=== PATIENT | female | born 1990 | race African-American/Black ===

== ENCOUNTER 2018-12-13 20:29 | Inpatient (IN) | payer SELFPAY ==
[2018-12-13 20:54] LABS: #Basophils 0.1 thou/uL (0.0-0.2); #Eosinphils 0.3 thou/uL (0.0-0.7); #Lymphocytes 3.7 thou/uL (1.20-3.40); #Monocytes 1.2 thou/uL (0.11-0.59); #Neutrophils 8.8 thou/uL (1.40-6.50); %Eosinophils 2.3 % (0.0-10.0); %Monocytes 8.5 % (0.0-10.0); %Neutrophils 62.1 % (42.0-75.0); Hemoglobin 10.8 g/dL (12.0-16.0); Mean Corpuscular HGB CONC 33.2 g/dL (32.0-36.0); Mean Corpuscular Hemoglobin 27.8 pg (27.0-31.0); Mean Corpuscular Volume 83.7 fL (78.0-98.0); Mean Platelet Volume 7.6 fL (7.4-10.4); Platelet Count 321 thou/uL (130-400); RBC Distribution Width 13.4 % (11.5-14.5); Red Blood Cell (RBC) Count 3.89 mill/uL (4.20-5.40); White Blood Cell (WBC) Count 14.1 thou/uL (4.8-10.8)
[2018-12-13 21:15] LABS: ALT (SGPT) 11 U/L (8-55); AST (SGOT) 13 U/L (5-34); Albumin 3.8 g/dL (3.5-5.0); Alkaline Phosphatase 67 U/L (40-110); Anion Gap 11 mmol/L (10-20); BUN (Urea Nitrogen) 8 mg/dL (7.0-18.7); Bilirubin, Total Less than 0.2 mg/dL (0.2-1.2); Calc. Creatinine Clearance 0 mL/min (70-130); Calcium 9.4 mg/dL (7.8-10.44); Carbon Dioxide 23 mmol/L (22-29); Chloride 102 mmol/L (98-107); Estimated GFR-MDRD Greater than 90; Globulin 3.6 g/dL (2.4-3.5); Glucose 94 mg/dL (70-105); Potassium 3.8 mmol/L (3.5-5.1); Protein, Total 7.4 g/dL (6.0-8.3); Sodium 132 mmol/L (136-145)
--- NOTE | 2018-12-13 21:42 | ULT ---
EXAM: OB ultrasound COMPARISON: None HISTORY: Pelvic pain. TECHNIQUE: Multiplanar grayscale and color Doppler transabdominal sonographic images are obtained. FINDINGS: There is a single intrauterine gestation in breech presentation. Cardiac Doppler demonstrat es heart tones with a heart rate of 133 beats per minute. The placenta is located to the maternal right and appears to extend across the cervical os suggesting complete placenta previa b ased on provided sonographic images. There is a decrease in the amount of amniotic fluid. An amniotic fluid index of 2.4 cm is calculated. The cervix is shortened measuring 1.8 cm in length base d on transabdominal imaging. There is lucency seen in the region of the internal cervical os which could be related to fluid and secondary to funneling, but given the placenta previa, this is difficul t to adequately determine. biometry measurements: BPD 5.34 cm -- 22 weeks 2 days HC 19.9 cm -- 22 weeks AC 17.59 cm -- 22 weeks 3 days FL 5.06 cm -- 23 weeks 1 day The estimated gestational age by ultrasound is 22 weeks 3 days with an KARLA on04/15/2019. Gestational a ge by the last menstrual period is not provided. The estimated weight by ultrasound is 526 g (1 pound, 3 ounces). The cerebellum, stomach, and urinary bladder are visualized and demonstrate a normal sonographic appe arance. A definite 4 chamber heart is difficult to delineate. anatomical structures are overall difficult to evaluate due to lack of amniotic fluid. No definitive anomalies appreciate d. A three-vessel cord is not visualized, but there is flow on either side of the urinary bladder suggesting a three-vessel cord. IMPRESSION: 1. Oligohydramnios with significant decrease in amniotic fluid volume with amniotic fluid index of 2. 4 cm. 2. The placenta is located on the maternal right and provided images suggest that there is evidence o f a complete placenta previa. 3. Single intrauterine gestation in breech presentation with heart tones documented. Estimated gestational age by ultrasound is 20 weeks 3 days. 4. Estimated weight is 526 g (1 pound, 3 ounces. 5. CUSTOMER INSIGHT ANALYST consultation is recommended. Above findings discussed with Dr. Sood in the emergency depar tment on 12/13/2018 at 2137 hours.
[2018-12-13] MEDS ORDERED: Lactated Ringer's 1,000 ML IV SCH ×2 (23:30)
--- NOTE | 2018-12-13 23:39 | ULT ---
LIMITED PELVIC ULTRASOUND: 12/13/18 HISTORY: Difficulty in evaluation of the placenta as well as in evaluation of the cervix on the initial OB ult rasound. Additional endovaginal imaging was requested for further evaluation. FINDINGS: Comparison is made with OB ultrasound on 12/13/18. The placenta appears to be located to the maternal left and not on the right as suggestied on prior e xam, but again does cover the internal cervical os suggesting complete placenta previa. A tiny amount of fluid is seen within the endocervical canal. Given the diminished amniotic fluid, more adequate e valuation of the placenta is difficult on this exam. IMPRESSION: Findings suggesting complete placenta previa. Dr. Delaney was present during this exam. POS: OFF
[2018-12-14 00:22] LABS: Amnisure Test RUPTURE DETECTED (No Rupture)
[2018-12-14 00:23] LABS: Amnisure Internal Control QC ACCEPTABLE (ACCEPTABLE)
[2018-12-14 00:43] VITALS: BP 130/62; TEMP 98.4; BMI 25.8
[2018-12-14] MEDS ORDERED: Ampicillin 2 GM in Sodium Chloride 0.9% 100 ML IVPB SCH (00:45)
[2018-12-14] MEDS ORDERED: Azithromycin 1,000 MG in Sodium Chloride 0.9% 500 ML IVPB SCH (00:45)
--- NOTE | 2018-12-14 00:50 | PRG ---
DATE OF SERVICE: 12/13/2018 PRIMARY OB: None. CHIEF COMPLAINT: Leakage of fluid. HISTORY OF PRESENT ILLNESS: The patient is a 28-year-old, G4, P3 female with an intrauterine at about 22 weeks' gestation by ultrasound today, presenting to Labor and Delivery with leakage of fluid that began about 6:00 p.m. The patient reports that she had a gush of leaking fluid that has been occurring since that time and has required multiple pads for coverage and has continued to leak but at a lesser degree. She denies any uterine contractions or vaginal bleeding. She denies any recent illness, fever, fall, headache, chest pain, shortness of breath, nausea, vomiting, diarrhea, constipation, hip problems, knee problems, muscle weakness, vaginal bleeding, leakage of fluid, or urinary urgency or frequency. The patient has not established OB care. PAST MEDICAL HISTORY: Negative. PAST SURGICAL HISTORY: She has had 2 previous C-sections. SOCIAL HISTORY: The patient denies alcohol or drug use or tobacco use since the . She does have a history of marijuana use and social drinking and a history a half pack per day of smoking. ALLERGIES: NO KNOWN DRUG ALLERGIES. MEDICATIONS: None. REVIEW OF SYSTEMS: Per HPI. PHYSICAL EXAMINATION: VITAL SIGNS: Blood pressure 130/82, heart rate of 93, respiratory rate 18, saturating 98% on room air, and temperature 98.4. GENERAL: She appears to be in no acute distress. She is alert, oriented, cooperative, and pleasant to interact with. HEAD: Normocephalic and atraumatic. LUNGS: Clear to auscultation bilaterally. HEART: Has regular rate and rhythm. ABDOMEN: Gravid, soft, nontender. EXTREMITIES: Nontender, nonedematous. : Vulva is without masses, lesions, or erythema. Vagina is moist with pulling present on sterile speculum exam. Cervix is closed visibly. Digital exam is not performed. heart tracing shows Doppler at 140s. No contractions visible on the monitor. LABORATORY DATA: CBC shows a white count of 14.1, hemoglobin 10.8, hematocrit 32.6, and platelets 321,000. Sodium 132, potassium 3.8, creatinine 0.65, AST of 13, and ALT of 11. Formal ultrasound shows a fetus measuring 22 weeks and 3 days in vertex presentation with PRINCE of 2.4 and what appears to be a complete placenta previa. weight is estimated at 526 g. AmniSure test is positive. ASSESSMENT AND PLAN: The patient is a 28-year-old multiparous female with what appears to be acute gross rupture of membranes at 6:00 p.m. today on 12/13/2018, with fetus in the periviable state and a placenta previa as what appears to be going on by ultrasound; however, the patient is actively leaking fluid with no bleeding. Given the patient's periviable state, the patient will be transferred to [facility]. We will place her on antibiotics at this time. Job ID: [id number]
[2018-12-14 01:14] LABS: HBSAB Concentration 31.14 mIU/mL; Hep B Surf AB Reactive (NonReactive)
[2018-12-14 01:41] LABS: Amphetamine Not Detected (NotDetected); Barbiturates Screen Not Detected (NotDetected); Benzodiazepine Screen Not Detected (NotDetected); Cocaine Metabolite Screen Not Detected (NotDetected); Medtox Control Line Valid? VALID (VALID); Medtox Reader # READER 1; Methadone Not Detected (NotDetected); Methamphetamine Not Detected (NotDetected); Opiate Screen Not Detected (NotDetected); Oxycodone Screen Not Detected (NotDetected); Phencyclidine (PCP) Not Detected (NotDetected); THC/Cannabinoid Screen Detected (NotDetected); Tricyclic Screen Not Detected (NotDetected)
[2018-12-14] MEDS ORDERED: FLU VACC QS2019-20(6MOS UP)/PF 60 MCG/0.5 ML SYRINGE IM ONE (09:00)
[2018-12-14 09:31] LABS: Syphilis Antibody INDETERMINATE (Nonreactive)
== END 2018-12-14 01:15 | disposition short-term general hospital (02) | DRG 832 ==
LOC: ERS 20:29 → L&D 22:37
PROVIDERS: ADMIT Obstetrics & Gynecology; ATTEND Obstetrics & Gynecology
DX: O42.912 Preterm premature rupture of membranes, unspecified as to length of time between rupture and onset of labor, second trimester (principal); O44.02 Complete placenta previa NOS or without hemorrhage, second trimester; Z3A.22 22 weeks gestation of pregnancy
CPT/HCPCS: 36415; 76815; 76856; 80053; 80306; 84112; 84702; 85025; 86593; 86706; 86762; 86780; 86850; 86900; 86901; 87480; 87510; 87660; J0290; J3490

== ENCOUNTER 2020-01-03 07:34 | Inpatient (IN) | payer OTHER, SELFPAY ==
[2020-01-03] MEDS ORDERED: Bicitra 30 ML UDCUP ONE (08:06)
[2020-01-03] MEDS ORDERED: Azithromycin 500 MG VIAL ONE (08:09)
[2020-01-03] MEDS ORDERED: hydrALAZINE 20 MG/ML VIAL SLOW IVP PRN ×2 (08:10→12:56)
[2020-01-03] MEDS ORDERED: Azithromycin 500 MG in Sodium Chloride 0.9% 250 ML 250 ML IVPB SCH (08:10)
[2020-01-03] MEDS ORDERED: CEFAZOLIN 2 GM in Premix Bag 1 BAG IVPB SCH (08:10)
[2020-01-03] MEDS: Lactated Ringer's 1,000 ML IV SCH ×2 (08:10→14:00)
[2020-01-03] MEDS ORDERED: Docusate 100 MG CAP PO PRN (08:10)
[2020-01-03] MEDS ORDERED: Ondansetron PF 4 MG/2 ML Vial IVP PRN ×3 (08:10→12:56)
[2020-01-03] MEDS ORDERED: Butorphanol Tartrate 1 MG/ML VIAL SLOW IVP PRN (08:10)
[2020-01-03] MEDS ORDERED: Promethazine HCl 25 MG/ML VIAL IM PRN ×2 (08:10→09:56)
[2020-01-03] MEDS ORDERED: Acetaminophen 500 MG TAB PO PRN (08:10)
[2020-01-03] MEDS ORDERED: Bicitra 30 ML UDCUP PO SCH (08:10)
[2020-01-03 08:12] VITALS: BMI 28.1
[2020-01-03 08:16] LABS: Hemoglobin 11.3 g/dL (12.0-16.0); Mean Corpuscular HGB CONC 31.5 g/dL (32.0-36.0); Mean Corpuscular Hemoglobin 26.2 pg (27.0-31.0); Mean Corpuscular Volume 83.1 fL (78.0-98.0); Mean Platelet Volume 8.1 fL (7.4-10.4); Platelet Count 365 thou/uL (130-400); RBC Distribution Width 14.3 % (11.5-14.5); Red Blood Cell (RBC) Count 4.31 mill/uL (4.20-5.40); White Blood Cell (WBC) Count 16.4 thou/uL (4.8-10.8)
[2020-01-03] MEDS ORDERED: Morphine PF 10 MG/10 ML VIAL ONE (08:29)
[2020-01-03] MEDS ORDERED: Fentanyl 250 MCG/5 ML VIAL ONE (08:29)
[2020-01-03] MEDS ORDERED: Fentanyl 100 MCG/2 ML VIAL ONE (08:30)
[2020-01-03] MEDS ORDERED: ePHEDrine 50 MG/ML VIAL ONE (08:30)
[2020-01-03] MEDS ORDERED: PHENYLEPHRINE-NS 100 MCG/ML 10 ML SYRINGE ONE (08:31)
[2020-01-03] MEDS ORDERED: Oxytocin 10 UNITS/ML VIAL ONE (08:31)
[2020-01-03] MEDS ORDERED: Ondansetron PF 4 MG/2 ML Vial ONE (08:32)
[2020-01-03 08:57] LABS: HBSAg Index 0.16 S/CO (0-0.99); HIV (1/2) Antibody/Antigen Non-Reactive (NonReactive); HIV 1/2 INDEX 0.12 S/CO (<1.00); Hep B Surf Ag Non-Reactive S/CO (NonReactive)
[2020-01-03 09:03] LABS: Amphetamine Detected (NotDetected); Barbiturates Screen Not Detected (NotDetected); Benzodiazepine Screen Not Detected (NotDetected); Cocaine Metabolite Screen Not Detected (NotDetected); Medtox Control Line Valid? VALID (VALID); Medtox Reader # READER 4; Methadone Not Detected (NotDetected); Methamphetamine Detected (NotDetected); Opiate Screen Not Detected (NotDetected); Oxycodone Screen Not Detected (NotDetected); Phencyclidine (PCP) Not Detected (NotDetected); THC/Cannabinoid Screen Detected (NotDetected); Tricyclic Screen Not Detected (NotDetected)
[2020-01-03] MEDS ORDERED: Ketorolac Tromethamine 30 MG/ML VIAL ONE (09:30)
[2020-01-03] MEDS ORDERED: Dexamethasone 4 mg/ml Vial ONE (09:30)
[2020-01-03] MEDS ORDERED: Naloxone HCl 0.4 mg/ml Vial IV PRN (09:56)
[2020-01-03] MEDS ORDERED: Promethazine HCl 25 MG SUPP PR PRN (09:56)
[2020-01-03] MEDS ORDERED: Ondansetron HCl/PF 4 MG/2 ML Vial IVP PRN (09:56)
[2020-01-03] MEDS ORDERED: Meperidine HCl/PF 25 MG/ML VIAL SLOW IVP PRN (09:56)
[2020-01-03] MEDS ORDERED: diphenhydrAMINE 50 MG/ML VIAL IVP PRN (09:56)
[2020-01-03] MEDS ORDERED: HYDROmorphone 2 MG/ML VIAL SLOW IVP PRN (09:56)
[2020-01-03] MEDS ORDERED: Naloxone HCl 0.4 mg/ml Vial IVP PRN ×2 (09:56)
[2020-01-03] MEDS ORDERED: L&D-Morphine 4 MG/ML VIAL SLOW IVP PRN (09:56)
[2020-01-03] MEDS ORDERED: Communication Order-Pharmacy FS SCH (10:00)
--- NOTE | 2020-01-03 10:05 | PDOC.FPROB ---
FMR OB H&P: HPI - History of Present Illness Chief Complaint: ROM History of Present Illness: 29 y/o with no care believed to be a who is brought in by EMS for reported ROM at home. She c/o LOF at home around 0715 this morning. She does not know her KARLA or gestational age. Believes her LMP was sometime in 04/2019 which would make her 32-36 weeks, very unsure of this. Has had continued monthly spotting since that time until 1 month ago which is when she first realized she was . Endorses contractions. Denies current vaginal bleeding, vaginal discharge. She has previous hx of IUFD, twin gestation, labor. All of her previous deliveries have been via section. States this will be her 5th ceserean section. Chart review also reveals hx of methamphetamine and cannabis use in the past. Denies drug or alcohol use. Endorses tobacco use before she knew she was . Reports she had a walk in appointment for her approximately 1 month ago. She [facility] app[facility]. States she did not get f/u appt after that visit. She is a poor historian and is unable to further clarify her past obstetric history at this time. No record of patient encounter with [facility]. Primary Care Physician: unknown FMR OB H&P: Current - Care : 5 Para: [id number] Gestational age: estimated 34-36 wks based on bedside sono today Due date: unknown Course/Complications: No care Hx tobacco use in maternal hx drug use in past - OB Labs Blood type: B RH: positive Antibody Screen: negative HIV: negative RPR: unknown HepBsAg: negative Quad screen: unknown Urine drug screen: positive Gonorrhea: unknown Chlamydia: unknown GBS: unknown H&H: 11.3/35.8 FMR OB H&P: History - Past Medical History PMH: Hx hepatitis s/p treatment per patient - unsure if B or C - OB History OB History: , presumed Hx IUFD Hx twin gestation Hx multiple in past - BIOMATHEMATICIAN History BIOMATHEMATICIAN History: unknown - Surgical History Sx History: denies surgeries other than cesearean - Social History Social History: Denies etoh, drug use. UDS positive. Admits tobacco use. - Family History Family History: Hx DM in grandmother, does not know additional family hx FMR OB H&P: Medications - Current Home Medications: Medication Instructions Recorded Confirmed Type Pnv No.95/Ferrous Fum/Folic AC 1 each PO DAILY 12/14/18 12/14/18 History [ Vitamin Tablet] Allergies/Adverse Reactions: Allergies Allergy/AdvReac Type Severity Reaction Status Date / Time citric acid Allergy Verified 05/14/19 13:05 No Known Drug Allergies Allergy Unverified 05/14/19 13:05 FMR OB H&P: ROS - Review of Systems General: denies: fever/chills Eyes: denies: vision changes ENT: denies: nasal congestion, rhinorrhea Cardiovascular: denies: chest pain, palpitation, edema Respiratory: denies: shortness of breath Gastrointestinal: denies: abdominal pain, nausea, vomiting Genitourinary (Female): reports: contractions. denies: dysuria, vaginal discharge, vaginal bleeding Neurologic: denies: headache Integumentary: reports: other (eczema) Hematologic/Lymphatic: denies: prolonged or excessive bleeding FMR OB H&P: Vital Signs - Maternal Vital signs: Vital Signs - First Documented Temp Pulse Resp BP Pulse Ox 99.3 F 110 H 20 125/71 98 01/03/20 08:09 01/03/20 08:09 01/03/20 08:09 01/03/20 08:09 01/03/20 08:09 FMR OB H&P: Physical Exam - Physical Exam General: other (appears uncomfortable, alert and awake) HEENT: MMM, conjunctiva clear, grossly normal vision, grossly normal hearing, other (few missing teeth) Neck: no LAD Chest: non-tender to palpation Heart: RRR, no murmurs/rubs/gallops, pulses present, no edema General: CTAB, no respiratory distress, no rales/rhonchi, no wheezing Abdomen: soft, gravid, fundus(cm) (35), non-tender Musculoskeletal: pulses present Neurological: sensation to pain,touch and proprioception grossly normal, DTR +2 Skin: other (macular, hyperkeratotic, scaly patches on flexor surfaces with some excoriation) Lymphatic: no unusual bruising or bleeding Psychiatric: other (poor recall of past month, irritable affect) - Pelvic Exam Deviation from normal: gross expression of amniotic fluid per vagina with any pressure SVE: 4 cm dilation Membranes: ruptured Presentation: cephalic on bedside sono FMR OB H&P: Results - Labs Lab results: Laboratory Results - last 24 hr 01/03/20 01/03/20 01/03/20 07:59 07:59 07:59 WBC 16.4 H RBC 4.31 Hgb 11.3 L Hct 35.8 L MCV 83.1 MCH 26.2 L MCHC 31.5 L RDW 14.3 Plt Count 365 MPV 8.1 Urine Opiates Screen Ur Oxycodone Screen Urine Methadone Screen Ur Propoxyphene Screen Ur Barbiturates Screen Ur Tricyclics Screen Ur Phencyclidine Scrn Ur Amphetamines Screen U Methamphetamines Scrn U Benzodiazepines Scrn U Cocaine Metab Screen U Cannabinoids Screen Drug Screen Comment Hep Bs Antigen Non-Reactive HIV 1&2 Antigen & Ab Non-Reactive Blood Type B POSITIVE Antibody Screen NEGATIVE Crossmatch See Detail 01/03/20 08:35 WBC RBC Hgb Hct MCV MCH MCHC RDW Plt Count MPV Urine Opiates Screen Not Detected Ur Oxycodone Screen Not Detected Urine Methadone Screen Not Detected Ur Propoxyphene Screen Not Detected Ur Barbiturates Screen Not Detected Ur Tricyclics Screen Not Detected Ur Phencyclidine Scrn Not Detected Ur Amphetamines Screen Detected H U Methamphetamines Scrn Detected H U Benzodiazepines Scrn Not Detected U Cocaine Metab Screen Not Detected U Cannabinoids Screen Detected H Drug Screen Comment Hep Bs Antigen HIV 1&2 Antigen & Ab Blood Type Antibody Screen Crossmatch - Imaging Imaging: Bedside sono today with anterior lateral placenta, cephalic fetus measuring 34- 35 weeks based on abdominal circumference and femur length. FMR OB H&P: A/P Disposition: sIUP, presents with SROM with no care or previous dating US, gross leakage of amniotic fluid per vagina. - SVE 4cm/90% effaced - 3 previous C-sections - unsure LMP in 04/2019, c/w with bedside sono today estimating 34-35 wga; fundal ht 35 cm - not a candidate for vaginal delivery due to previous hx - type + cross; hold 2 units - will proceed to ceserean delivery given ROM and estimated gestational age No care Unclear if or when she has had any care. Unable to obtain records this morning. No records at [facility] or [facility]. - labs today: UDS, CBC, HepBsAg, HIV, RPR, hep C Maternal drug use UDS today positive for meth, cannabis. - CM consult Maternal tobacco use - Aware Hx syphilis Reports past tx in 2009. - last know titer 1:1 in 2019 - will need tx if titer >1:4 today Hx hepatitis Reports tx in past. Unsure if hepatitis A or C. - hep B neg today - will check hep C Discussion: Date/Time: 01/03/20 1005 This H&P was discussed with Dr. Delaney who agree with the above documentation and plan. Addendum - Attending - Attending Attestation Date/Time: 01/03/20 1103 I personally evaluated the patient and discussed the management with Dr. Xavier. I agree with the History, Examination, Assessment and Plan documented above with any addition or exceptions noted below. Pt has reported two visits with this but no documentation can be found. Last delivery was at 23 weeks byt csection. She denies knowledge of any complications with previous deliveries. She denies illness. FOB not involved. not planned. She communicated a desire for tubal ligation. We explained that this is not an option at this time. I have stressed the need for close follow up after delivery to discuss options in the community.
[2020-01-03 10:33] LABS: Syphilis Antibody INDETERMINATE (Nonreactive)
--- NOTE | 2020-01-03 10:35 | PDOC.OPDEL ---
OB Operative/Delivery Note Delivery Dr/Surgeon: Dr. Xavier, Dr. Delaney Pre-Delivery Diagnosis: ruptured membrane, other (repeat ) Weeks gestation: 35 (estimated with Fundal height and fast sono as no pre- care and pt unsure of LMP ) Anesthesia: spinal - Additional Findings/Plan Placenta delivered: manual removal findings: low transverse hysterotomy without extension, normal tubes, normal ovaries, other (evidence of previous classical scar on anterior myometrium once was delivered) Estimated blood loss: 411 Compilations/Other Findings: Date of Procedure: 01/03/20 Resident Surgeon: Dr. Xavier Attending Surgeon: Dr. Delaney Procedure: Repeat low transverse caesarean section Preoperative Diagnosis: 1) sIUP 2) Presented with SROM gross pooling amniotic fluid 3) Polysubstance abuse, +UDS Meth, cannabis, and amphetamines 4) No Pre-Lukasz Care 5) Hx of 3 prior cesareans 6) Hx of IUFD Postoperative Diagnosis: 1) Malagon delivered 2) same as above Anesthesia: spinal Indications: 29 year old estimated to be at 35 wga by funtal height and appearance on sono performed by Dr. Delaney, presents after no Pre- care in labor with SROM, dilated to a 4 on SVE. Hx of previous X3. Procedure in Detail: After risks, benefits, and alternatives were explained to the patient, she gave informed consent. Pre-operative antibiotics included ancef 2 g and azithromycin 500 mg. The patient was taken to the operating room and spinal anesthesia was placed. FHT with doppler demonstrated 134 prior to procedure. She was placed in the supine position with a left tilt and prepped and draped in usual sterile fashion. A Pfannenstiel incision was made with a scalpel and carried down to the level of the fascia which was sharply nicked. The fascial cut was extended bilaterally sharply with curved mayos. The inferior and superior edges of the fascial edges were elevated with Zenon clamps and the underlying rectus muscles bluntly and sharply dissected free. There was an omental adhesion to the underlying fascia surface, which was bluntly and sharply dissected free after carefully being explored and bladder identified. The recti were divided using blunt dissection. The peritoneum was entered high and bluntly retracted. There were adhesions noted to the anterior uterine wall, which were taken down with the bovie. Bladder flap was created with ricci and alexys, and bladder taken down interiorly. Maylard incision was performed bilaterally through the rectus muscles with bovie to provide more room for delivery of fetus as there was restriction bilaterally. Emily-O was placed and folded down tightly down. A low transverse score was made with the scalpel and the uterus was entered in the midline with the scalpel. Tissue scissors extended the hysterotyomy in the cephalic-lateral angle. Amniotomy performed with ranjeet and there was clear amniotic fluid visualized. The infant was noted to be vertex and was easily delivered by fundal pressure. Mouth and nares bulb suctioned. Cord clamped after approx 15 seconds and cut. Grossly normal male was taken to the warming table. Cord blood was obtained. Placenta was manually extracted, found to be intact. The uterus was curetted with a dry lap. The myometrium was palpated and there was evidence of a previous classical with indentation and thinner myometrium midline and vertical on uterus. Ring forceps were applied to the hysterotomy corner for hemostasis and the endometrium was curetted with a dry lap. The hysterotomy was closed with a running locking 0- Monocryl in the usual fashion and one figure of 8 stitch on the Right hysterotomy edge, after this- hemostasis was achieved. The hysterotomy was again noted to be hemostatic. The emily-O was externalized. The fascia surface was examined and found to be free of injury and bleeders. The rectus was evaluated for bleeders, and found to be hemostatic. The fascia was closed with a running non-locking 0-PDS suture. The subcutaneous layer was irrigated and suctioned. Found to be free of bleeders. The sub-cutaneous layer was closed with interrupted plain gut suture and 3-0 chromic interrupted sutures. The skin was approximated with 4-0 monocryl and a pressure bandage was placed. All counts were correct X3. The patient tolerated the procedure well and was taken to recovery in stable condition. QBL: 411 ml Time of delivery: 921 Complications: None Specimens: cord blood Findings: Grossly normal male infant, normal appearing placenta with 3VC Drains: Briggs to gravity draining clear urine Post delivery plan: recovery in LICU Addendum - Attending - Attending Attestation Date/Time: 01/04/20 0306 I personally evaluated the patient and discussed the management with Dr. Xavier I was present, scrubbed, assisting, and supervising the c/s of Ms Olivarez. I have reviewed the operative note and agree with the documentation.
[2020-01-03 11:42] LABS: SARS-CoV-2 NAA Rapid Test Not Detected (NotDetected)
[2020-01-03] MEDS ORDERED: Meperidine HCl/PF 25 MG/ML VIAL ONE (12:00)
[2020-01-03] MEDS ORDERED: diphenhydrAMINE 25 MG CAP PO PRN (12:56)
[2020-01-03] MEDS: Ketorolac Tromethamine 30 MG/ML VIAL IVP PRN ×2 (15:34→21:56)
--- NOTE | 2020-01-03 15:40 | PDOC.BPN ---
- Brief Progress Note Encounter Date: 01/03/20 Encounter Time: 15:00 4 hour Post-OP C Section note S: Patient is doing well, has some pain near the incision but is otherwise feeling well. She denies CP/Palpitations, SOB/cough, headache. She reports her legs are still numb. She has not had much lochia. O: P 56, T 97.9, R 14, BP 113/70 General: Well appearing, sitting up in bed holding her baby Cardiac: RRR no murmur Lungs: BCTA Abd: appropriately TTP, uterus firm and below umbilicus, soft. Pressure dressing present over CS incision A/P: Continue post CS care. Discussed baby's club foot.
[2020-01-03] MEDS: Ferrous Sulfate 325 MG TAB PO SCH (20:06)
[2020-01-03] MEDS: Docusate Calcium (SURFAK) 240 MG CAP PO SCH (20:06)
[2020-01-04] MEDS: HYDROcodone/Acetaminophen 5/325 mg Tablet PO PRN ×5 (01:43→23:14)
--- NOTE | 2020-01-04 06:37 | PDOC.PP ---
Post Progress Note Post Day #: 1 Subjective: Post op day #1 from [facility] CPS to see mother today due to + meth, amphetamine, and cannabis UDS on admission. + on UDS as well. voiding well. no BM or flatus yet tolerating regular diet. ambulating easily. bonding well with . holding baby upon entry to room. Denies any use of illicit drugs since early in . states she has never used any meth or amphetamines, only cannabis. Very concerned hat CPS might "take my baby." PO intake tolerated: yes Flatus: no Ambulation: yes Vital Signs (12 hours) Temp Pulse Resp BP Pulse Ox 01/04/20 04:00 98.2 F 88 16 96/53 L 01/04/20 00:00 98.8 F 82 16 108/58 L 01/03/20 19:30 97.5 F L 77 16 111/69 100 Weight Weight 81.647 kg - Physical Examination General: NAD Cardiovascular: no m/r/g, RRR Respiratory: clear to auscultation bilaterally, non-labored breathing Abdominal: + bowel sounds, lochia, no distention, appropriately TTP Fundus firm & at: umbilicus Extremities: negative homans (B) Skin: CS incision dry & intact (with dermabond overlying incision and no draining from bandage.), no rash Neurological: no gross focal deficits Psychiatric: A&Ox3, normal affect Result Diagrams: 01/03/20 07:59 Additional Labs: Post Labs Hep Bs Antigen Non-Reactive S/CO (NonReactive) 01/03/20 07:59 Blood Type B POSITIVE 01/03/20 07:59 - Assessment/Plan 29 y/o -> 4 pp rLTCS day #1, rLTCS -> P4 with no care or previous dating US, gross leakage of amniotic fluid per vagina upon admission with hx of previous X3. - norco for pain control, bowel regimen. - Pt desires PP contraception, will give information for both [facility] and [facility] for IUD/nexplanon - evidence of previous classical after infant delivered via [facility] on 01/02. No care Unclear if or when she has had any care. Unable to obtain records this morning. No records at [facility] or [facility]. - UDS + - hep B sAG, HIV neg - RPR indeterminate, reflex TPPA pending. Maternal drug use UDS today positive for meth, amphetamines and cannabis. - CM consult and CPS evaluation pending as + as well for meth, amphetamines and cannabis on UDS. Maternal tobacco use - Aware Hx syphilis Reports past tx in 2009. - last know titer 1:1 in 2019 - will need tx if titer >1:4 - RPR indeterminate, TPPA pending. Hx hepatitis Reports tx in past. Unsure if hepatitis A or C. 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 Anticipate d/c home tomorrow
[2020-01-04 07:23] LABS: Hemoglobin 9.1 g/dL (12.0-16.0); Mean Corpuscular HGB CONC 32.1 g/dL (32.0-36.0); Mean Corpuscular Hemoglobin 26.7 pg (27.0-31.0); Mean Corpuscular Volume 83.2 fL (78.0-98.0); Mean Platelet Volume 8.2 fL (7.4-10.4); Platelet Count 292 thou/uL (130-400); RBC Distribution Width 13.9 % (11.5-14.5)
[2020-01-04] MEDS: Prenatal Vitamin 1 TAB PO SCH (08:43)
[2020-01-04] MEDS: Docusate Calcium (SURFAK) 240 MG CAP PO SCH ×2 (08:43→21:05)
[2020-01-04] MEDS: Ketorolac Tromethamine 30 MG/ML VIAL IVP PRN (08:43)
[2020-01-04] MEDS: Ferrous Sulfate 325 MG TAB PO SCH ×2 (08:43→21:05)
[2020-01-04] MEDS ORDERED: Adacel (T-DAP) 0.5 ML SYRINGE IM ONE (09:00)
[2020-01-04] MEDS ORDERED: FLU VACC QS2020-21(6MOS UP)/PF 60 MCG/0.5 ML SYRINGE IM ONE (09:00)
[2020-01-04] MEDS: Ibuprofen 800 MG TAB PO SCH ×2 (14:36→21:04)
[2020-01-04] MEDS ORDERED: Guaifenesin DM 100-10/5 ML UDCUP PO PRN (23:31)
[2020-01-05] MEDS: Ibuprofen 800 MG TAB PO SCH ×2 (05:36→13:42)
--- NOTE | 2020-01-05 06:56 | PDOC.PED ---
Subjective: Pt would like to go home today CPS saw pt and infant to go with maternal grandparents due to maternal drug use. Mother states she will stop smoking marijuana. light lochia tolerating diet well. ambulating well pain controlled Objective: Vital Signs (12 hours) Temp Pulse Resp BP Pulse Ox 01/05/20 00:00 98.0 F 75 18 96/51 L 97 01/04/20 19:51 98.9 F 97 16 105/56 L 98 Weight Weight 81.647 kg 01/03/20 01/04/20 01/05/20 06:59 06:59 06:59 Intake Total 813 Output Total 2503 304 Balance -1690 -304 Lab/Radiology Result Diagrams: 01/04/20 06:29 Lab Results - 24 Hours 01/04/20 06:29 WBC 14.0 H RBC 3.40 L Hgb 9.1 L Hct 28.3 L MCV 83.2 MCH 26.7 L MCHC 32.1 RDW 13.9 Plt Count 292 MPV 8.2 Phys Exam - Physical Examination Constitutional: NAD HEENT: PERRLA, moist MMs, sclera anicteric Neck: no nodes, no JVD, supple, full ROM Respiratory: no wheezing, no rales, no rhonchi, clear to auscultation bilateral Cardiovascular: RRR, no significant murmur, no rub Gastrointestinal: soft, non-tender, no distention, positive bowel sounds Musculoskeletal: no edema, pulses present Neurological: non-focal, normal sensation, moves all 4 limbs Lymphatic: no nodes Psychiatric: normal affect, A&O x 3 Skin: no rash, normal turgor, cap refill <2 seconds
--- NOTE | 2020-01-05 07:09 | PDOC.PP ---
Post Progress Note Post Day #: 2 Subjective: Pt would like to go home today CPS saw pt and infant to go with maternal grandparents due to maternal drug use. Mother states she will stop smoking marijuana. light lochia tolerating diet well. ambulating well pain controlled PO intake tolerated: yes Flatus: yes Ambulation: yes Vital Signs (12 hours) Temp Pulse Resp BP Pulse Ox 01/05/20 00:00 98.0 F 75 18 96/51 L 97 01/04/20 19:51 98.9 F 97 16 105/56 L 98 Weight Weight 81.647 kg - Physical Examination General: NAD Cardiovascular: no m/r/g, RRR Respiratory: clear to auscultation bilaterally, non-labored breathing Abdominal: + bowel sounds, lochia, no distention, appropriately TTP Extremities: negative homans (B) Skin: CS incision dry & intact, no rash Neurological: no gross focal deficits Psychiatric: A&Ox3, normal affect Result Diagrams: 01/04/20 06:29 Additional Labs: Post Labs Hep Bs Antigen Non-Reactive S/CO (NonReactive) 01/03/20 07:59 Blood Type B POSITIVE 01/03/20 07:59 - Assessment/Plan 29 y/o -> 4 pp rLTCS day #2, rLTCS -> P4 with no care or previous dating US, gross leakage of amniotic fluid per vagina upon admission with hx of previous X3. - tylenol #3 for pain control, bowel regimen. d/c with tylenol #3. continue PO irion for 6 weeks. - Pt desires PP contraception, will give information for both [facility] and [facility] for IUD/nexplanon. given info for nataly IUD. - evidence of previous classical after delivered via [facility]CS on 01/02. No care Unclear if or when she has had any care. Unable to obtain records this morning. No records at [facility] or [facility]. - UDS + - hep B sAG, HIV neg - RPR indeterminate, reflex TPPA pending. Maternal drug use UDS today positive for meth, amphetamines and cannabis. - CM consult and CPS evaluation pending as + as well for meth, amphetamines and cannabis on UDS. Maternal tobacco use - Aware Hx syphilis Reports past tx in 2009. - last know titer 1:1 in 2019 - will need tx if titer >1:4 - RPR indeterminate, TPPA pending. Hx hepatitis Reports tx in past. Unsure if hepatitis A or C. 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 Anticipate d/c home today.
[2020-01-05] MEDS: Docusate Calcium (SURFAK) 240 MG CAP PO SCH (08:27)
[2020-01-05] MEDS: Prenatal Vitamin 1 TAB PO SCH (08:27)
[2020-01-05] MEDS: Ferrous Sulfate 325 MG TAB PO SCH (08:27)
[2020-01-05 08:29] VITALS: BP 102/55; TEMP 97.8
== END 2020-01-05 14:20 | disposition home or self-care (01) | DRG 787 ==
LOC: L&D/OP 07:34 → L&D 09:22 → 3SW 13:03
PROVIDERS: ADMIT Obstetrics & Gynecology; ATTEND Obstetrics & Gynecology
PROC: 10D00Z1 Extraction of Products of Conception, Low, Open Approach (ICD-10-PCS; principal; 2020-01-03)
DX: O60.14X0 Preterm labor third trimester with preterm delivery third trimester, not applicable or unspecified (principal); O99.324 Drug use complicating childbirth; O34.212 Maternal care for vertical scar from previous cesarean delivery; Z20.828 Contact with and (suspected) exposure to other viral communicable diseases; Z3A.37 37 weeks gestation of pregnancy; Z37.0 Single live birth; O99.334 Smoking (tobacco) complicating childbirth; F17.200 Nicotine dependence, unspecified, uncomplicated; F15.10 Other stimulant abuse, uncomplicated; F12.10 Cannabis abuse, uncomplicated; Z86.19 Personal history of other infectious and parasitic diseases
CPT/HCPCS: 36415; 51702; 80306; 85027; 86593; 86780; 86850; 86900; 86901; 87340; 87389; 87521; 88307; 99285; J0456; J0690; J1100; J1885; J2175; J2270; J2405; J3010; J3490; Q0163; U0002